=== PATIENT | male | born 1955 | race Two or more races ===

== ENCOUNTER 2018-05-09 23:13 | Emergency (ER) | payer BC ==
[~2018-05-09] VITALS: Ht 165.1 cm; Wt 118.0 kg
[2018-05-09 23:15] VITALS: BP 142/77
== END 2018-05-10 00:36 | disposition home or self-care (01) ==
LOC: ED 23:59
DX: S91.311A Laceration without foreign body, right foot, initial encounter (principal); W26.0XXA Contact with knife, initial encounter; Y93.89 Activity, other specified; Y92.009 Unspecified place in unspecified non-institutional (private) residence as the place of occurrence of the external cause; Y99.8 Other external cause status
CPT/HCPCS: 12001; 99283